=== PATIENT | male | born 1980 | race African-American/Black ===

== ENCOUNTER 2017-02-17 22:35 | Emergency (ER) | payer MEDICAID, OTHER ==
[~2017-02-17] VITALS: Ht 180.3 cm; Wt 98.0 kg
[2017-02-18] MEDS ORDERED: IBUPROFEN 600MG TABLET PO STA (01:43)
[2017-02-18 03:18] VITALS: BP 124/55
== END 2017-02-18 03:20 | disposition home or self-care (01) ==
LOC: ER 22:42
DX: R07.89 Other chest pain (principal); R10.9 Unspecified abdominal pain; J45.909 Unspecified asthma, uncomplicated
CPT/HCPCS: 71010; 93005; 99284; Z7610

== ENCOUNTER 2017-08-13 19:20 | Emergency (ER) | payer MEDICAID, OTHER ==
[~2017-08-13] VITALS: Ht 177.8 cm; Wt 84.0 kg
[2017-08-13] MEDS ORDERED: DEXAMETHASONE 10 MG/ML VIAL IM ONE (23:15)
[2017-08-13] MEDS ORDERED: ALBUTEROL (0.5%) 2.5MG/0.5ML NEB HHN ONE (23:15)
[2017-08-13] MEDS ORDERED: DEXAMETHASONE 10 MG/ML VIAL PO ONE (23:45)
[2017-08-13] MEDS ORDERED: DEXAMETHASONE 10 MG/ML VIAL PO SCH (23:51)
[2017-08-14] MEDS ORDERED: DEXAMETHASONE 0.5MG/5ML ORAL SYR PO ONE
[2017-08-14 02:02] VITALS: BP 128/71
== END 2017-08-14 02:15 | disposition home or self-care (01) ==
LOC: ER 19:41
DX: R06.09 Other forms of dyspnea (principal); R05 Cough; J45.909 Unspecified asthma, uncomplicated
CPT/HCPCS: 94640; 99283; J1100; J7611; Z7610; J8540

== ENCOUNTER 2017-11-15 11:20 | Emergency (ER) | payer OTHER ==
[~2017-11-15] VITALS: Ht 177.8 cm; Wt 76.0 kg
[2017-11-15] MEDS ORDERED: HYDROCODONE/ACETAMINOPHEN 5/325MG TABLET PO STA (12:00)
[2017-11-15 15:23] VITALS: BP 112/71
== END 2017-11-15 15:46 | disposition home or self-care (01) ==
LOC: ER 11:21
DX: S00.03XA Contusion of scalp, initial encounter (principal); S80.12XA Contusion of left lower leg, initial encounter; S60.222A Contusion of left hand, initial encounter; Y08.02XA Assault by strike by baseball bat, initial encounter; R03.0 Elevated blood-pressure reading, without diagnosis of hypertension; Y93.89 Activity, other specified; Y92.89 Other specified places as the place of occurrence of the external cause
CPT/HCPCS: 70450; 73130; 73590; 99284; Z7610

== ENCOUNTER 2017-12-11 04:09 | Emergency (ER) | payer OTHER ==
[~2017-12-11] VITALS: Ht 182.9 cm; Wt 78.0 kg
[2017-12-11] MEDS ORDERED: KETOROLAC 60MG/2ML VIAL IM ONE (06:15)
[2017-12-11 08:47] VITALS: BP 112/68
== END 2017-12-11 08:47 | disposition home or self-care (01) ==
LOC: ER 04:09
DX: S82.492A Other fracture of shaft of left fibula, initial encounter for closed fracture (principal); S89.82XA Other specified injuries of left lower leg, initial encounter; J45.909 Unspecified asthma, uncomplicated; F17.210 Nicotine dependence, cigarettes, uncomplicated; Z71.6 Tobacco abuse counseling; Z98.890 Other specified postprocedural states; Y08.09XA Assault by strike by other specified type of sport equipment, initial encounter; Y93.89 Activity, other specified; Y92.89 Other specified places as the place of occurrence of the external cause
CPT/HCPCS: 73562; 73590; 96372; 99284; 99406; J1885; L1830; Z7610